=== PATIENT | male | born 1965 | race African-American/Black ===

== ENCOUNTER 2018-06-01 06:11 | Emergency (ER) | payer SELFPAY ==
[~2018-06-01] VITALS: Ht 185.4 cm; Wt 113.4 kg
[2018-06-01 06:11] VITALS: BP 175/108
--- NOTE | 2018-06-01 06:15 | PHYS DOC ---
Adult General HPI HPI Patient is a 52 year old male who presents with dental pain. Patient has known case that have cavities. He has had them for many years. Today, he presents to the ER complaining of worsening pain on the right molar mandibular area. He has some swelling in the back of his mouth near the tooth in question. No difficulty swallowing food or water. No swelling of the throat or airway. Symptoms have been worsening over the last 48 hours. No fever. Review of Systems Review of Systems Constitutional: Denies fever or chills Eyes: Denies change HENT: Denies Respiratory: Denies cough Cardiovascular: No additional information not addressed in HPI GI: Denies abdominal pain : Denies Musculoskeletal: Denies Integument: Denies rash All other systems were reviewed and found to be within normal limits, except as documented in this note. Current Medications Current Medications Current Medications Medications (Trade) Dose Ordered Sig/Arnav Start Time Stop Time Status Last Admin Dose Admin Amoxicillin (Amoxil) 500 mg 1X ONCE 06/01/18 07:00 06/01/18 07:01 06/01/18 06:37 500 MG Ibuprofen (Motrin) 800 mg 1X ONCE 06/01/18 07:00 06/01/18 07:01 06/01/18 06:37 800 MG Oxycodone/ Acetaminophen (Percocet 5/325) 2 tab 1X ONCE 06/01/18 07:00 06/01/18 07:01 06/01/18 06:37 2 TAB Allergies Allergies Allergies Coded Allergies Type Severity Reaction Last Updated Verified No Known Drug Allergies 06/01/18 No Physical Exam Physical Exam Constitutional: Well developed, well nourished, no acute distress, non-toxic appearance HENT: Normocephalic, atraumatic, bilateral external ears normal, oropharynx moist, no oral exudates, nose normal, several cavities in the mouth. right mandibular molar area with gingival injection. no drainable abscess is seen Eyes: PERRLA, EOMI Neck: Normal range of motion Cardiovascular:Heart rate regular rhythm, no murmur Lungs & Thorax: Bilateral breath sounds clear to auscultation Skin: Warm, dry Neurologic: Alert and oriented X 3 Psychologic: Affect normal Current Patient Data Vital Signs Vital Signs Date Time Temp Pulse Resp B/P (MAP) Pulse Ox O2 Delivery O2 Flow Rate FiO2 06/01/18 06:11 98.0 88 18 175/108 (130) 97 Room Air 98.0 EKG EKG [] Radiology/Procedures Radiology/Procedures [] Course & Med Decision Making Course & Med Decision Making Pertinent Labs and Imaging studies reviewed. (See chart for details) 06:15: Patient is seen and examined. No drainable abscess is seen on exam. The patient does have multiple cavities. Patient does seem to be in significant pain. In the emergency department, he is given Percocet and ibuprofen and amoxicillin. He is discharged home on the same. He is recommended to follow-up with a dentist at his earliest convenience. Return to the ER for any new or worsening symptoms. Dragon Disclaimer Dragon Disclaimer This electronic medical record was generated, in whole or in part, using a voice recognition dictation system. Departure Departure Disposition: HOME, SELF-CARE Condition: GOOD Scripts Amoxicillin (AMOXICILLIN) 500 Mg Tablet 1 TAB PO TID, #30 TAB Prov: GALILEA TRIANA DO 06/01/18 Hydrocodone/Apap 5-325 (NORCO 5-325 TABLET) 1 Each Tablet 1-2 EACH PO PRN Q6HRS PRN for SEVERE PAIN, #20 as needed for pain Prov: GALILEA TRIANA DO 06/01/18 Ibuprofen (IBUPROFEN) 800 Mg Tablet 800 MG PO PRN TID PRN for MODERATE PAIN, #30 TAB take with food or milk to avoid upsetting stomach Prov: GALILEA TRIANA DO 06/01/18 GALILEA TRIANA DO Jun 01, 2018 06:15
[2018-06-01] MEDS ORDERED: HYDR-3164 PO (06:33)
[2018-06-01] MEDS ORDERED: AMOX500T PO (06:33)
[2018-06-01] MEDS ORDERED: IBUP-1060 PO (06:33)
[2018-06-01] MEDS ORDERED: oxyCODONE/APAP 5/325 1 TAB TABLET PO ONE (07:00)
[2018-06-01] MEDS ORDERED: IBUPROFEN 400 MG TABLET. PO ONE (07:00)
[2018-06-01] MEDS ORDERED: AMOXICILLIN 250 MG CAPSULE. PO ONE (07:00)
[2018-06-02] MEDS ORDERED: OXYC-328 PO (17:47)
== END 2018-06-01 06:47 | disposition home or self-care (01) ==
LOC: ER 06:11
DX: K08.89 Other specified disorders of teeth and supporting structures (principal)
CPT/HCPCS: 99284

== ENCOUNTER 2018-06-10 21:28 | Emergency (ER) | payer SELFPAY ==
[~2018-06-10] VITALS: Ht 185.4 cm; Wt 113.4 kg
[~2018-06-10 21:28] MED LIST: AMOX500T PO; HYDR-3164 PO; IBUP-1060 PO; OXYC1TAB22 PO
[2018-06-10 21:37] VITALS: BP 123/91
== END 2018-06-10 21:35 | disposition left against medical advice (07) ==
LOC: ER 21:28
DX: R51 Headache (principal); Z53.21 Procedure and treatment not carried out due to patient leaving prior to being seen by health care provider

== ENCOUNTER 2018-09-25 09:07 | Emergency (ER) | payer SELFPAY ==
[~2018-09-25] VITALS: Ht 185.4 cm; Wt 117.9 kg
[2018-09-25 09:29] VITALS: BP 149/107
[2018-09-25] MEDS: KETOROLAC 30 MG/ML VIAL. IV ONE (09:46)
[2018-09-25 09:52] LABS: BASO % 1 % (0-3); EOS # 0.3 x10^3/uL (0.0-0.7); EOS % 5 % (0-3); HEMATOCRIT 48.2 % (39.0-53.0); HEMOGLOBIN 16.3 g/dL (13.0-17.5); LYMPH # 1.9 x10^3/uL (1.0-4.8); LYMPH % 31 % (24-48); MEAN CORPUSCULAR HEMOGLOBIN 31 pg (25-35); MEAN CORPUSCULAR HGB CONC 34 g/dL (31-37); MEAN CORPUSCULAR VOLUME 93 fL (79-100); MONO # 0.9 x10^3/uL (0.0-1.1); MONO % 14 % (0-9); NEUT # 3.1 x10^3uL (1.8-7.7); NEUT % 50 % (31-73); PLATELET COUNT 194 x10^3/uL (140-400); RED CELL DISTRIBUTION WIDTH 14.9 % (11.5-14.5); WHITE BLOOD COUNT 6.3 x10^3/uL (4.0-11.0)
[2018-09-25 09:57] LABS: BARBITURATES NEG (NEG); BENZODIAZEPINES NEG (NEG); CANNABINOIDS NEG (NEG); COCAINE NEG (NEG); METHADONE NEG (NEG); OPIATES NEG (NEG); PHENCYCLIDINE NEG (NEG)
[2018-09-25 09:59] LABS: AMPHETAMINE/METHAMPHETAMINE NEG (NEG)
[2018-09-25 09:59] LABS: CALCIUM 9.2 mg/dL (8.5-10.1); CREATININE 1.1 mg/dL (0.7-1.3); GFR 84.4; POTASSIUM 4.3 mmol/L (3.5-5.1)
[2018-09-25 10:02] LABS: BILIRUBIN,URINE NEGATIVE (NEG); CLARITY,URINE CLEAR; COLOR,URINE YELLOW; NITRITE,URINE NEGATIVE (NEG); PH,URINE 5.5; PROTEIN,URINE NEGATIVE (NEG-TRACE); UROBILINOGEN,URINE 0.2 mg/dL (0.2 mg/dL)
[2018-09-25 10:06] LABS: ALBUMIN 3.9 g/dL (3.4-5.0); ALBUMIN/GLOBULIN RATIO 0.9 (1.0-1.7); TOTAL BILIRUBIN 0.3 mg/dL (0.2-1.0); TOTAL PROTEIN 8.4 g/dL (6.4-8.2)
[2018-09-25 10:19] LABS: SQUAMOUS EPITHELIAL CELL,UR OCC /LPF
[2018-09-25 10:20] LABS: BACTERIA,URINE 0 /HPF (0-FEW); RBC,URINE 0 /HPF (0-2); WBC,URINE OCC /HPF (0-4)
[2018-09-25] MEDS ORDERED: MELO7.5T5 PO (10:27)
--- NOTE | 2018-09-25 10:28 | PHYS DOC ---
Past Medical History Past Medical History: Hypertension Past Surgical History: No Surgical History Additional Past Surgical Histo: ABD SURGERY Alcohol Use: None Drug Use: None Adult General Chief Complaint Chief Complaint: BACK PAIN - NO INJURY [facility] HPI Patient is a 52 year old male who presents with back pain and numbness to his feet. The patient was diagnosed with spinal stenosis but did not follow-up with neurosurgery. He states that he has been taking [id number] pain medication with little relief. He denies any new injury. He states that he does still have the name of the surgeon at home and he was strongly encouraged to call and make that appointment. Review of Systems Review of Systems Constitutional: Denies fever or chills [] Eyes: Denies change in visual acuity, redness, or eye pain [] HENT: Denies nasal congestion or sore throat [] Respiratory: Denies cough or shortness of breath [] Cardiovascular: No additional information not addressed in HPI [] GI: Denies abdominal pain, nausea, vomiting, bloody stools or diarrhea [] : Denies dysuria or hematuria [] Musculoskeletal: See history of present illness Integument: Denies rash or skin lesions [] Neurologic: Denies headache, focal weakness or sensory changes [] Endocrine: Denies polyuria or polydipsia [] All other systems were reviewed and found to be within normal limits, except as documented in this note. Current Medications Current Medications Current Medications Medications (Trade) Dose Ordered Sig/[facility] Start Time Stop Time Status Last Admin Dose Admin Ketorolac Tromethamine (Toradol 30mg Vial) 30 mg 1X ONCE 09/25/18 09:45 09/25/18 09:46 DC 09/25/18 09:46 30 MG Morphine Sulfate (Morphine Sulfate) 5 mg 1X ONCE 09/25/18 10:30 09/25/18 10:31 DC 09/25/18 10:30 5 MG Allergies Allergies Allergies Coded Allergies Type Severity Reaction Last Updated Verified No Known Drug Allergies 06/01/18 No Physical Exam Physical Exam Constitutional: Well developed, well nourished, no acute distress, non-toxic appearance. [] Cardiovascular:Heart rate regular rhythm, no murmur [] Lungs & Thorax: Bilateral breath sounds clear to auscultation [] Abdomen: Bowel sounds normal, soft, no tenderness, no masses, no pulsatile masses. [] Skin: Warm, dry, no erythema, no rash. [] Back: Generalized lumbar tenderness, no CVA tenderness. [] Extremities: No tenderness, no cyanosis, no clubbing, ROM intact, no edema. [] Neurologic: Alert and oriented X 3, normal motor function, normal sensory function, no focal deficits noted. [] Psychologic: Affect normal, judgement normal, mood normal. [] Current Patient Data Vital Signs Vital Signs Date Time Temp Pulse Resp B/P (MAP) Pulse Ox O2 Delivery O2 Flow Rate FiO2 09/25/18 10:30 20 99 Room Air 09/25/18 09:29 97.7 90 149/107 (121) 97.7 Lab Values Laboratory Tests Test 09/25/18 09:40 09/25/18 09:42 White Blood Count 6.3 x10^3/uL (4.0-11.0) Red Blood Count 5.20 x10^6/uL (4.30-5.70) Hemoglobin 16.3 g/dL (13.0-17.5) Hematocrit 48.2 % (39.0-53.0) Mean Corpuscular Volume 93 fL (79-100) Mean Corpuscular Hemoglobin 31 pg (25-35) Mean Corpuscular Hemoglobin Concent 34 g/dL (31-37) Red Cell Distribution Width 14.9 % (11.5-14.5) H Platelet Count 194 x10^3/uL (140-400) Neutrophils (%) (Auto) 50 % (31-73) Lymphocytes (%) (Auto) 31 % (24-48) Monocytes (%) (Auto) 14 % (0-9) H Eosinophils (%) (Auto) 5 % (0-3) H Basophils (%) (Auto) 1 % (0-3) Neutrophils # (Auto) 3.1 x10^3uL (1.8-7.7) Lymphocytes # (Auto) 1.9 x10^3/uL (1.0-4.8) Monocytes # (Auto) 0.9 x10^3/uL (0.0-1.1) Eosinophils # (Auto) 0.3 x10^3/uL (0.0-0.7) Basophils # (Auto) 0.0 x10^3/uL (0.0-0.2) Urine Opiates Screen Neg (NEG) Urine Methadone Screen Neg (NEG) Urine Barbiturates Neg (NEG) Urine Phencyclidine Screen Neg (NEG) Urine Amphetamine/Methamphetamine Neg (NEG) Urine Benzodiazepines Screen Neg (NEG) Urine Cocaine Screen Neg (NEG) Urine Cannabinoids Screen Neg (NEG) Urine Ethyl Alcohol Neg (NEG) Urine Collection Type Unknown Urine Color Yellow Urine Clarity Clear Urine pH 5.5 Urine Specific [place] 1.020 Urine Protein Negative mg/dL (NEG-TRACE) Urine Glucose (UA) Negative mg/dL (NEG) Urine Ketones (Stick) Negative mg/dL (NEG) Urine Blood Negative (NEG) Urine Nitrite Negative (NEG) Urine Bilirubin Negative (NEG) Urine Urobilinogen Dipstick 0.2 mg/dL (0.2 mg/dL) Urine Leukocyte Esterase Negative (NEG) Urine RBC 0 /HPF (0-2) Urine WBC Occ /HPF (0-4) Urine Squamous Epithelial Cells Occ /LPF Urine Bacteria 0 /HPF (0-FEW) Urine Mucus Mod /LPF Sodium Level 140 mmol/L (136-145) Potassium Level 4.3 mmol/L (3.5-5.1) Chloride Level 102 mmol/L (98-107) Carbon Dioxide Level 28 mmol/L (21-32) Anion Gap 10 (6-14) Blood Urea Nitrogen 17 mg/dL (8-26) Creatinine 1.1 mg/dL (0.7-1.3) Estimated GFR (Cockcroft-Gault) 84.4 BUN/Creatinine Ratio 15 (6-20) Glucose Level 120 mg/dL (70-99) H Calcium Level 9.2 mg/dL (8.5-10.1) Total Bilirubin 0.3 mg/dL (0.2-1.0) Aspartate Amino Transferase (AST) 17 U/L (15-37) Alanine Aminotransferase (ALT) 27 U/L (16-63) Alkaline Phosphatase 54 U/L (46-116) Total Protein 8.4 g/dL (6.4-8.2) H Albumin 3.9 g/dL (3.4-5.0) Albumin/Globulin Ratio 0.9 (1.0-1.7) L Laboratory Tests 09/25/18 09:40 Laboratory Tests 09/25/18 09:42 EKG EKG [] Radiology/Procedures Radiology/Procedures [] Course & Med Decision Making Course & Med Decision Making Pertinent Labs and Imaging studies reviewed. (See chart for details) The patient was given Toradol in the emergency department. He states that it did not control his pain. He was then given a dose of morphine. The patient was discharged to home and is to follow-up with neurosurgery. He is in agreement with this plan. Dragon Disclaimer Dragon Disclaimer This electronic medical record was generated, in whole or in part, using a voice recognition dictation system. Departure Departure Impression: Primary Impression: Back pain Disposition: HOME, SELF-CARE Condition: STABLE Referrals: NO PCP (PCP) Patient Instructions: Back Pain, Adult Additional Instructions: Take the medication as directed. Follow-up with the neurosurgeon at an earliest appointment. If worsening return to the emergency department. You were given narcotic pain medication in the emergency department today. Do not drive or operate heavy machinery today. Scripts Meloxicam (MOBIC) 7.5 Mg Tablet 1 TAB PO DAILY for pain, #30 TAB 1 Refill Prov: SUSAN NORTH APRN 09/25/18 SUSAN NORTH APRN Sep 25, 2018 10:28
[2018-09-25] MEDS: MORPHINE SULFATE 10 MG/ML VIAL. IV ONE (10:30)
== END 2018-09-25 10:39 ==
LOC: ER 09:07
DX: M54.5 Low back pain (principal); R20.0 Anesthesia of skin; I10 Essential (primary) hypertension
CPT/HCPCS: 36415; 80053; 80307; 81001; 85025; 96374; 96375; 99283; J1885; J2270